=== PATIENT | female | born 1960 | race Caucasian/White ===

== ENCOUNTER 2021-04-20 02:06 | Emergency (ER) | payer OTHER ==
[~2021-04-20 02:06] MED LIST: MEDROL DOSEPAK 24 MG PO; SUBOXONE 8 MG-1 EACH SL; ZESTRIL20 MG PO
[2021-04-20 03:54] LABS: HEMOGLOBIN 13.1 gm/dl (12.3-15.3); RED BLOOD COUNT 4.43 M/UL (4.00-5.10); WHITE BLOOD COUNT 7.8 K/UL (4.5-11.0)
[2021-04-20 03:58] LABS: BUN/CREATININE RATIO 16 (0-10)
== END 2021-04-20 06:26 | disposition home or self-care (01) ==
LOC: ER1 02:06
PROVIDERS: Emergency Medicine
DX: R06.02 Shortness of breath (principal); I10 Essential (primary) hypertension; R11.0 Nausea; Z87.891 Personal history of nicotine dependence; Z91.041 Radiographic dye allergy status
CPT/HCPCS: 71045; 80053; 82550; 82553; 83690; 83874; 83880; 84484; 85025; 93005; 99285

== ENCOUNTER → 2021-04-28 | Outpatient (CLI) | payer OTHER ==
[2021-04-28 10:49] LABS: HEMOGLOBIN 12.5 gm/dl (12.3-15.3); RED BLOOD COUNT 4.25 M/UL (4.00-5.10); WHITE BLOOD COUNT 4.7 K/UL (4.5-11.0)
[2021-04-28 11:09] LABS: BUN/CREATININE RATIO 22 (0-10)
[2021-04-29 09:14] LABS: THYROXINE (T4) 7.4 ug/dL (4.5-12.0)
== END ==
LOC: LAB 09:40
PROVIDERS: Nurse Practitioner Family
DX: J01.90 Acute sinusitis, unspecified (principal); R07.9 Chest pain, unspecified; R05 Cough; R53.82 Chronic fatigue, unspecified
CPT/HCPCS: 36415; 71046; 80053; 80061; 81001; 83036; 84436; 84443; 84480; 85025

== ENCOUNTER → 2021-06-15 | Outpatient (CLI) | payer OTHER | LOC: RAD 10:00 | DX: K21.9 Gastro-esophageal reflux disease without esophagitis (principal); K44.9 Diaphragmatic hernia without obstruction or gangrene; K22.8 Other specified diseases of esophagus; K22.2 Esophageal obstruction | CPT/HCPCS: 74246 ==

== ENCOUNTER → 2021-06-20 | Outpatient (CLI) | payer OTHER | LOC: HEART 5 08:00 | DX: I11.0 Hypertensive heart disease with heart failure (principal); R07.9 Chest pain, unspecified; R00.2 Palpitations; R60.0 Localized edema; I50.9 Heart failure, unspecified; E78.49 Other hyperlipidemia; I48.0 Paroxysmal atrial fibrillation; I25.5 Ischemic cardiomyopathy | CPT/HCPCS: 78452; A9502 ==

== ENCOUNTER → 2021-08-31 | Outpatient (CLI) | payer OTHER | LOC: HEART 5 14:25 | DX: J44.9 Chronic obstructive pulmonary disease, unspecified (principal) | CPT/HCPCS: 94010 ==

== ENCOUNTER → 2021-08-31 | Outpatient (CLI) | payer OTHER ==
[2021-08-31 17:22] LABS: HEMOGLOBIN 13.8 gm/dl (12.3-15.3); RED BLOOD COUNT 4.59 M/UL (4.00-5.10); WHITE BLOOD COUNT 8.6 K/UL (4.5-11.0)
[2021-08-31 17:38] LABS: BUN/CREATININE RATIO 13 (0-10)
[2021-09-02 08:13] LABS: THYROXINE (T4) 7.4 ug/dL (4.5-12.0)
== END ==
LOC: LAB 16:08
PROVIDERS: Nurse Practitioner Family
DX: R07.9 Chest pain, unspecified (principal); R53.82 Chronic fatigue, unspecified; R05.9 Cough, unspecified
CPT/HCPCS: 36415; 80053; 80061; 81001; 83036; 84436; 84443; 84480; 85025

== ENCOUNTER → 2021-09-15 | Outpatient (CLI) | payer OTHER | LOC: KOH-I 13:30 | DX: Z87.891 Personal history of nicotine dependence (principal); Z00.00 Encounter for general adult medical examination without abnormal findings; K44.9 Diaphragmatic hernia without obstruction or gangrene | CPT/HCPCS: 71271 ==

== ENCOUNTER → 2021-09-28 | Outpatient (CLI) | payer OTHER | LOC: LAB 10:13 | DX: E56.9 Vitamin deficiency, unspecified (principal); R53.83 Other fatigue | CPT/HCPCS: 36415; 82607 ==

== ENCOUNTER → 2021-10-01 | Outpatient (CLI) | payer OTHER | LOC: SLEEP 10:39 | DX: G47.33 Obstructive sleep apnea (adult) (pediatric) (principal) | CPT/HCPCS: 95810 ==

== ENCOUNTER → 2021-12-20 | Outpatient (CLI) | payer OTHER ==
[2021-12-21 09:15] LABS: VITAMIN D, 25-HYDROXY 26.7 ng/mL (30.0-100.0)
== END ==
LOC: LAB 09:14
PROVIDERS: Nurse Practitioner Family
DX: R53.83 Other fatigue (principal); E56.9 Vitamin deficiency, unspecified
CPT/HCPCS: 36415; 82607

== ENCOUNTER → 2022-03-26 | Outpatient (CLI) | payer OTHER ==
[2022-03-26 10:03] LABS: HEMOGLOBIN 12.8 gm/dl (12.3-15.3); RED BLOOD COUNT 4.43 M/UL (4.00-5.10); WHITE BLOOD COUNT 5.1 K/UL (4.5-11.0)
[2022-03-26 10:33] LABS: BUN/CREATININE RATIO 20 (0-10)
== END ==
LOC: LAB 09:34
PROVIDERS: Nurse Practitioner Family
DX: Z13.1 Encounter for screening for diabetes mellitus (principal); I10 Essential (primary) hypertension; R53.82 Chronic fatigue, unspecified; E78.5 Hyperlipidemia, unspecified
CPT/HCPCS: 80053; 80061; 83036; 84443; 85025

== ENCOUNTER 2022-05-13 09:06 | Emergency (ER) | payer OTHER ==
[2022-05-13 10:27] LABS: HEMOGLOBIN 13.7 gm/dl (12.3-15.3); RED BLOOD COUNT 4.66 M/UL (4.00-5.10); WHITE BLOOD COUNT 12.2 K/UL (4.5-11.0)
[2022-05-13 10:48] LABS: BUN/CREATININE RATIO 23 (0-10)
[2022-05-13] MEDS ORDERED: ONDANSETRON ODT4 MG PO (11:56)
== END 2022-05-13 12:28 | disposition home or self-care (01) ==
LOC: ER1 09:06
PROVIDERS: Nurse Practitioner
DX: R11.0 Nausea (principal); R60.0 Localized edema; K21.9 Gastro-esophageal reflux disease without esophagitis; F17.290 Nicotine dependence, other tobacco product, uncomplicated; Z88.5 Allergy status to narcotic agent
CPT/HCPCS: 80053; 81001; 82550; 82553; 83880; 84484; 85025; 93005; 96374; 99283; J2405